=== PATIENT | female | born 1965 | race Caucasian/White ===

== ENCOUNTER → 2020-05-13 | Outpatient (CLI) | payer OTHER | LOC: CAT 09:29 | PROVIDERS: ATTEND Nurse Practitioner | DX: N13.4 Hydroureter (principal); R10.9 Unspecified abdominal pain; R19.7 Diarrhea, unspecified; N13.30 Unspecified hydronephrosis; R19.00 Intra-abdominal and pelvic swelling, mass and lump, unspecified site; K63.9 Disease of intestine, unspecified ==